=== PATIENT | male | born 1945 | race Caucasian/White ===

== ENCOUNTER → 2017-07-25 12:09 | Outpatient (CLI) | payer MEDICARE, SELFPAY ==
[2017-07-25 12:55] LABS: Absolute Lymphocyte Count 1.31 X10^3/ul (0.83-4.51); Basophil# 0.03 X10^3/uL; Basophil% 0.5 % (0-1); Eosinophil# 0.22 X10^3/uL; Eosinophils% 3.4 % (0-5); Hematocrit 40.2 % (40-54); Hemoglobin 12.9 g/dl (13.0-16.5); Lymphocyte # 1.31 X10^3/ul (4.0); Lymphocyte % 20.4 % (19-41); Mean Corp Hgb Conc 32.1 g/gl (32-36); Mean Corpuscular Hgb 27.9 pg (27.0-32.0); Mean Corpuscular Volume 86.8 fL (80-94); Mean Platelet Vol. 9.4 fl (6.2-12.0); Monocyte# 0.83 X10^3/uL; Monocyte% 12.9 % (0-10); Neutrophil # 4.03 X10^3/uL (2.7-7.7); Neutrophil % 62.6 % (47-70); Platelet Count 240 K/mm3 (150-450); RBC Distribution Width CV 13.3 % (11.6-14.6); RBC Distribution Width SD 42.5 fl (35.1-43.9); Red Blood Count 4.63 M/mm3 (4.6-6.2); White Blood Count 6.4 K/mm3 (4.4-11.0)
[2017-07-25 12:56] LABS: POSITIVE COUNT NO; POSITIVE DIFFERENTIAL NO; POSITIVE MORPHOLOGY NO
[2017-07-25 13:21] LABS: Anion Gap 6 (5-15); BUN 15 mg/dL (7-18); Calcium,Total 9.2 mg/dL (8.5-10.1); Chloride 102 mmol/L (98-107); Creatinine, Serum 1.36 mg/dL (0.70-1.30); EST Glomerular Filtration Rate 55 mL/min (>60); Est Glom Filt Rate - Afr Amer 66 mL/min (>60); Glucose 126 mg/dL (74-106); Potassium 4.8 mmol/L (3.5-5.1); Sodium Level 136 mmol/L (136-145)
== END ==
PROVIDERS: Family Provider Family Medicine; PCP Family Medicine; Visit Provider Internal Medicine Cardiovascular Disease
DX: I25.118 Atherosclerotic heart disease of native coronary artery with other forms of angina pectoris (principal); Z86.73 Personal history of transient ischemic attack (TIA), and cerebral infarction without residual deficits
CPT/HCPCS: 36415; 80048; 85025

== ENCOUNTER → 2022-04-04 | Outpatient (CLI) | payer OTHER, MEDICARE, SELFPAY ==
--- NOTE | 2022-04-04 07:52 | AAVD_ITS ---
Reason For Study: Heart Disease Aorta Measurements Aorta Doppler Measurements Proximal aorta measures1.90 x 1.91cm. in cross- Peak systolic flow velocities within the proximal sectional axis. aorta measure 82.1 cm/sec. Proximal aorta measures1.78cm. in longitudinal Peak systolic flow velocities within the mid aorta axis. measure 92.2 cm/sec. Mid aorta measures1.93 x 1.90cm. in cross- Peak systolic flow velocities within the distal sectional axis. aorta measure 75.9 cm/sec. Mid aorta measures1.90cm. in longitudinal axis. Distal aorta measures1.77 x 1.69cm. in cross- sectional axis. Distal aorta measures1.74cm. in longitudinal axis. Left Iliac Artery Left iliac artery measures 0.95 x 0.96 cm. in the cross-sectional axis. Left iliac artery measures 0.95 cm. in the longitudinal axis. Peak systolic velocity in the left iliac artery measures 122.7 cm/sec. Right Iliac Artery Right iliac artery measures 0.82 x 0.88 cm. in the cross-sectional axis. Right iliac artery measures 0.87 cm. in the longitudinal axis. Peak systolic velocity in the right iliac artery measures 121.2 cm/sec. Procedure Aorta IVC Iliac vasculature or bypass grafts [id number]. The exam was diagnostic. Exam performed in department. VL/Abd Aortic/IVC Duplex scan Interpretation Summary Maximal diameter of the abdominal aorta is proximally at 1.9 x 1.91 cm which is normal Normal aortic flow velocity noted Left common iliac artery measures 0.95 x 0.96 cm diameter which is normal right common neck measures 0.82 x 0.88 cm in diameter which is normal Ordering Physician: DONTE ARGUETA Performed By: Zachary Gorman RVT
== END | disposition home or self-care (01) ==
LOC: CVS 07:51
PROVIDERS: PCP Family Medicine
DX: I10 Essential (primary) hypertension (principal); I25.10 Atherosclerotic heart disease of native coronary artery without angina pectoris
CPT/HCPCS: 93978

== ENCOUNTER → 2022-04-05 | Outpatient (CLI) | payer OTHER, MEDICARE, SELFPAY | END | disposition home or self-care (01) | LOC: CR 07:50 | PROVIDERS: PCP Family Medicine | DX: Z00.00 Encounter for general adult medical examination without abnormal findings (principal) ==

== ENCOUNTER 2022-05-03 08:00 | Outpatient (RCR) | payer OTHER, MEDICARE, SELFPAY | END 2022-05-04 23:59 | LOC: CR 08:00 | PROVIDERS: PCP Family Medicine | DX: I25.10 Atherosclerotic heart disease of native coronary artery without angina pectoris (principal); I10 Essential (primary) hypertension | CPT/HCPCS: 92971; G0166 ==

== ENCOUNTER 2022-06-04 08:00 | Outpatient (RCR) | payer OTHER, MEDICARE, SELFPAY | END 2022-06-04 23:59 | LOC: CR 08:00 | PROVIDERS: PCP Family Medicine | DX: I25.10 Atherosclerotic heart disease of native coronary artery without angina pectoris (principal); I10 Essential (primary) hypertension | CPT/HCPCS: 92971; G0166 ==

== ENCOUNTER 2022-06-18 03:55 | Emergency (ER) | payer OTHER, SELFPAY ==
[2022-06-05 08:20] VITALS: BMI 24.9
[2022-06-18 03:56] VITALS: BP 180/99; PULSE 60; RESP 16; TEMP 36.2; O2SAT 100; BMI 26.2
--- NOTE | 2022-06-18 04:17 | EKG12_ITS ---
Test Reason : CP Blood Pressure : / mmHG Vent. Rate : 058 BPM Atrial Rate : 058 BPM P-R Int : 210 ms QRS Dur : 088 ms QT Int : 418 ms P-R-T Axes : 024 -09 062 degrees QTc Int : 410 ms Sinus bradycardia with 1st degree A-V block Low voltage QRS Poor R wave progression Confirmed by VINCENZO LEAVITT, JAEL ([id number]), loan expeditor MAGDALENE ISAAC ([id number]) on 06/19/2022 1:42:30 PM Referred By: DONALDO Confirmed By:JAEL LOYA MD
--- NOTE | 2022-06-18 04:17 | RAD_ITS ---
INDICATION: chest pain EXAMINATION/TECHNIQUE: X-RAY - XR Chest 1 View COMPARISON: None. FINDINGS: LINES/DEVICES: None. LUNGS: No consolidation, edema or effusion. No pneumothorax. MEDIASTINUM AND CARDIOVASCULAR STRUCTURES: Cardiac silhouette not enlarged. Central airways and mediastinal contour are unremarkable. BONES AND SOFT TISSUES: Unremarkable. RAD/Chest 1 View (Portable) IMPRESSION: No radiographic evidence of acute cardiopulmonary disease. Electronically Signed: John Salazar MD at 4:51 EST ,
[2022-06-18 04:23] LABS: Absolute Lymphocyte Count 1.76 X10^3/uL (0.83-4.51); Basophil# 0.04 X10^3/uL; Basophil% 0.7 % (0-1); Eosinophil# 0.19 X10^3/uL; Eosinophils% 3.2 % (0-5); Hematocrit 40.1 % (40-54); Hemoglobin 12.9 g/dL (13.0-16.5); Lymphocyte # 1.76 X10^3/ul (0.83-4.51); Mean Corp Hgb Conc 32.2 g/dL (32-36); Mean Corpuscular Hgb 27.5 pg (27.0-32.0); Mean Corpuscular Volume 85.5 fL (80-94); Monocyte# 0.86 X10^3/uL; Monocyte% 14.7 % (0-10); NRBC Flagged by Analyzer 0 % (0-5); Neutrophil # 2.99 X10^3/uL (2.7-7.7); Neutrophil % 51.1 % (47-70); Platelet Count 277 K/mm3 (150-450); RBC Distribution Width CV 14.6 % (11.6-14.6); RBC Distribution Width SD 45.7 fl (35.1-43.9); Red Blood Count 4.69 M/mm3 (4.6-6.2); White Blood Count 5.9 K/mm3 (4.4-11.0)
[2022-06-18 04:45] LABS: Anion Gap 7 (5-15); BUN 16 mg/dL (7-18); BUN/Creat Ratio 12.8 RATIO (10-20); Chloride 102 mmol/L (98-107); Creatinine, Serum 1.25 mg/dL (0.70-1.30); EST Glomerular Filtration Rate 60 mL/min (>60); Est Glom Filt Rate - Afr Amer 72 mL/min (>60); Estimated Creatinine Clearance 55.18 ml/min; Glucose 116 mg/dL (74-106); Magnesium 2.3 mg/dL (1.6-2.6); Potassium 4.3 mmol/L (3.5-5.1); Sodium Level 133 mmol/L (136-145); Troponin-I HS (w/2H Reflex) 8 pg/mL (3.0-78.0)
[2022-06-18 04:55] VITALS: BP 150/86; PULSE 58; RESP 15; O2SAT 97
[2022-06-18 05:00] VITALS: BP 160/87; PULSE 56; RESP 16; O2SAT 99
--- NOTE | 2022-06-18 05:13 | ED.VIS.CHEST ---
HPI History of Present Illness Chief Complaint: Chest Pain Informant: patient Narrative Narrative: Patient is a 76-year-old male with history of coronary artery disease, hypertension, hyperlipidemia and prior stents (last it was a little over 1 year ago) presenting with chest pain. Patient states he developed chest pressure in the center of his chest has been constant since yesterday. It intermittently radiates to his left arm and jaw. Became more severe last night and around 2 AM he woke up with cold sweats. He did take nitroglycerin at around 3 AM with some improvement of pain. EMS was called and they did give him aspirin and further nitroglycerin in route. Patient notes that he did just start EECP therapy through [facility]. His care is typically through the [facility] system. He notes with his increased activity he has had some increased chest discomfort especially over the last week. He is no longer on Brilinta but is still on clopidogrel. He states he was read off of his statin due to elevated liver enzymes. Patient denies any shortness of breath or difficulty breathing. He notes his chest discomfort is worse with exertion. He states his last cardiac catheterization was probably over a year ago since he was when his stent was. Prior Similar Symptoms: With Prior Angina [facility] Medical History (Updated 06/18/22 @ 07:[address] Lizzie Antunez, DO) Abnormal EKG Atherosclerotic heart disease of [place] coronary artery with other forms of angina pectoris BPH (benign prostatic hyperplasia) Depression Erectile dysfunction ETOH abuse GERD (gastroesophageal reflux disease) History of TIA (transient ischemic attack) Hyperlipidemia Hypertension Hyperthyroidism Nicotine dependence in remission Home Medications aspirin 81 mg tablet,delayed release (Adult Aspirin Regimen) 81 mg PO .daily 07/23/17 [History Last Taken Unknown] finasteride 5 mg tablet 5 mg PO QDAY 07/23/17 [History Last Taken Unknown] isosorbide mononitrate 60 mg tablet,extended release 24 hr 60 mg PO QAM 07/23/17 [History Last Taken Unknown] levothyroxine 25 mcg tablet 25 mcg PO QDAY 07/23/17 [History Last Taken Unknown] nitroglycerin 0.4 mg sublingual tablet 0.4 mg sublingual Q5-15M PRN Chest Pain 07/23/17 [History Last Taken Unknown] tamsulosin 0.4 mg capsule (Flomax) 0.4 mg PO QDAY 07/23/17 [History Last Taken Unknown] losartan 50 mg tablet 25 mg PO QDAY 07/25/17 [History Last Taken Unknown] omeprazole 20 mg capsule,delayed release 20 mg PO BID 07/25/17 [History Last Taken Unknown] albuterol 90 mcg/actuation aerosol inhaler 90 mcg inhalation PRN PRN SOB 06/18/22 [History Last Taken Unknown] clopidogrel 75 mg tablet 75 mg PO DAILY 06/18/22 [History Last Taken Unknown] isosorbide mononitrate 120 mg tablet,extended release 24 hr 120 mg PO DAILY #30 tabs 06/18/22 [Rx Last Taken Unknown] metoprolol succinate 100 mg tablet,extended release 24 hr 100 mg PO DAILY 06/18/22 [History Last Taken Unknown] tiotropium bromide 2.5 mcg/actuation mist for inhalation 2 puff inhalation DAILY 06/18/22 [History Last Taken Unknown] Allergy/AdvReac Type Severity Reaction Status Date / Time Sulfa (Sulfonamide Allergy Unknown unknown Verified 06/18/22 04:02 Antibiotics) ranolazine [From Ranexa] AdvReac syncope, Verified 06/18/22 04:02 dizziness, nausea Family History Mother Cancer Bladder cancer Surgical History (Updated 06/18/22 @ 07:[address] Lizzie Antunez DO) History of coronary artery stent placement Social History Smoking Status: Former smoker alcohol intake: former caffeine: Yes Type: coffee Number of servings: 5 ROS ROS ED Constitutional Constitutional ED: Reports sweats; Denies chills or fever(s) Eyes Eyes: Denies change in vision ENT ENT ED: Denies rhinorrhea Cardiovascular Cardiovascular: Reports as per HPI and chest pain Respiratory/Chest Respiratory/Chest: Reports dyspnea on exertion; Denies cough or dyspnea Gastrointestinal Gastrointestinal: Reports nausea; Denies abdominal pain or vomiting Musculoskeletal Musculoskeletal: Denies arthralgias or myalgias Integumentary Denies rash Neurologic Neurologic: Denies headache(s) Hematologic/Lymphatic Hematologic/Lymphatic: Denies easy bleeding or easy bruising EXAM Physical Exam Const Vital Signs: 06/18/22 03:56 06/18/22 03:56 06/18/22 04:17 Temperature 97.2 F L Temperature Source Temporal Pulse Rate 60 Respiratory Rate 16 Respiratory Effort Normal Blood Pressure 180/99 H Blood Pressure Mean 126 Pulse Ox 100 Oxygen Delivery Method Room Air Room Air 06/18/22 04:55 06/18/22 05:00 06/18/22 06:00 Temperature Temperature Source Pulse Rate 58 L 56 L 55 L Respiratory Rate 15 16 13 Respiratory Effort Blood Pressure 150/86 H 160/87 H 151/84 H Blood Pressure Mean 107 111 106 Pulse Ox 97 99 97 Oxygen Delivery Method Room Air Room Air Room Air Positive well nourished and well developed General Appearance ED: well developed and NAD HEENT Reports moist mucous membranes normocephalic and atraumatic Neck supple and no JVD Chest Wall inspection of chest normal and palpation of chest normal Resp normal respiratory effort and clear to auscultation bilaterally Cardio regular rate, regular rhythm and no murmurs GI normal to inspection, nondistended, normoactive bowel sounds and soft to palpation Extremity normal to inspection General Extremety ED: Negative for edema or pulses abnormal General Extremity: Negative for edema or pulses abnormal Neuro oriented x3 Neuro Narrative: No focal deficits appreciated Sensorium / Orientation: awake Motor Exam: Negative for general weakness Psych mental status grossly normal Skin no rashes or lesions noted Heart Score History: Highly Suspicious ECG: Normal Age: >/= 65 years Risk Factors: >/= 3 Risk Factors or History of CAD Troponin: </= Normal Limit Score: 6 MDM MDM MDM Narrative Medical decision making narrative: Scanned documents reviewed from the [facility]. Patient had a stress test on November 26, 2021 which was negative for changes consistent with myocardial ischemia. Patient did have angina that were improved with rest with this. Cardiac catheterization on 01/23/2022 from the [facility] reviewed which showed no acute occlusion, patent proximal and distal stent and the LAD, patent stent in OM 2 and moderate diffuse disease throughout, medical management recommended. At that time it was thought that patient might benefit from EECP therapy. Differential for patient includes angina, ACS, pneumonia and pneumothorax. EKG does not show acute ischemic changes. 1 view chest x-ray interpreted by myself as well as radiology does not show any acute process. Initial high since he troponin is 8. Will repeat patient's troponin and then discussed the case with cardiology. Patient had a normal cardiac catheterization less than 6 months ago however his story is concerning for unstable angina. He continues to be asymptomatic in the ER this is confounded by the fact that he has a significant history of angina with multiple normal cardiac catheterizations. Case discussed extensively with Dr. Turcios, cardiology on-call. I went [facility] and recent cardiac catheterization reports with him. We also discussed the patient's current medical management. He did suggest increasing the patient's Imdur to 120 mg daily. States that the patient is stable at this time likely we could try medication management as he previously has been managed with medication management and it seems less likely that ACS is his diagnosis given his stable EKG and normal high-sensitivity troponins. We also did discuss transferring the patient back to the [facility]. At this time patient feels like he be comfortable just calling his discharge planner this morning and following up outpatient. He is agreeable with this medication change. He is given a new prescription for Imdur 120 mg in case he runs out of his 60 mg before he can follow-up with his medical team. Patient is counseled that if he has any further progression or recurrence of his angina that is outside of his normal angina he should either return immediately to our ER or to the [facility] ER. Patient feels comfortable doing this and shared decision making is utilized. Lab Data Attestation: I reviewed the patient's lab results. Labs: Laboratory Results - last 24 hr 06/18/22 06/18/22 06/18/22 04:05 04:05 06:26 WBC 5.9 RBC 4.69 Hgb 12.9 L Hct 40.1 MCV 85.5 MCH 27.5 MCHC 32.2 RDW Std Deviation 45.7 H RDW Coeff of Ramses 14.6 Plt Count 277 MPV 9.0 Immature Gran % (Auto) 0.300 Neut % (Auto) 51.1 Lymph % (Auto) 30.0 Bremer % (Auto) 14.7 H Eos % (Auto) 3.2 Baso % (Auto) 0.7 Absolute Neuts (auto) 3.0 Absolute Lymphs (auto) 1.76 Nucleated RBC % 0 Sodium 133 L Potassium 4.3 Chloride 102 Carbon Dioxide 24.0 Anion Gap 7 BUN 16 Creatinine 1.25 Estim Creat Clear Calc 55.18 Est GFR (MDRD) Af Amer 72 Est GFR (MDRD) Non-Af 60 BUN/Creatinine Ratio 12.8 Glucose 116 H Calcium 9.0 Magnesium 2.3 Troponin I High Sens 8 7 Radiography Chest X-Ray - ED: 1 View, Read by ED Physician, Read by Radiologist and No Acute Disease Diagnostic Testing: Clinical Impression(s) from Imaging Studies Chest X-Ray 06/18/22 04:17 IMPRESSION: No radiographic evidence of acute cardiopulmonary disease. Electronically Signed: John Salazar MD at 4:51 EST , Rhythm Strip Rhythm Strip: Sinus bradycardia Rate: 58 Ectopy: None EKG Initial EKG: Attestation: I personally reviewed and interpreted this EKG as follows: Interpretation: Sinus Bradycardia Comments: Sinus bradycardia with first-degree AV block at a rate of 58 bpm NH interval 210 Normal axis Normal QRS and QTc Normal ST segments Discharge Plan Triage Chief Complaint: Chest Pain ED Provider: Lizzie Antunez Dx/Rx/DC Orders Clinical Impression: Angina pectoris, unspecified, History of coronary artery stent placement Instructions: ED Angina, Stable Prescriptions: New isosorbide mononitrate 120 mg tablet extended release 24 hr 120 mg PO DAILY Qty: 30 0RF No Action isosorbide mononitrate 60 mg tablet extended release 24 hr 60 mg PO QAM finasteride 5 mg tablet 5 mg PO QDAY nitroglycerin 0.4 mg tablet, sublingual 0.4 mg SUBLINGUAL Q5-15M PRN (Reason: Chest Pain) levothyroxine 25 mcg tablet 25 mcg PO QDAY aspirin [Adult Aspirin Regimen] 81 mg tablet,delayed release (DR/EC) 81 mg PO .daily tamsulosin [Flomax] 0.4 mg capsule,extended release 24hr 0.4 mg PO QDAY omeprazole 20 mg capsule,delayed release(DR/EC) 20 mg PO BID losartan 50 mg tablet 25 mg PO QDAY metoprolol succinate 100 mg Tablet Extended Release 24 Hr 100 mg PO DAILY clopidogrel 75 mg Tablet 75 mg PO DAILY albuterol 90 mcg/actuation Aerosol 90 mcg INHALATION PRN PRN (Reason: SOB) tiotropium bromide 2.5 mcg/actuation Mist 2 puff INHALATION DAILY Primary Care Provider: Jesus Beckett Referrals: Jesus Beckett MD [Primary Care Provider] - Activity Restrictions/Additional Instructions: Please follow-up with your discharge planner through the [facility]. At this time we will try to optimize medical management by increasing your isosorbide mononitrate to 120 milligrams daily. You can take 2 of your 60 mg tablets every morning. You been given a prescription for the 120 mg dose in case you run out before you can see your discharge planner. If your anginal symptoms worsen or progress please either return to our ER or to the [facility] ER. Disposition Disposition: Home, Self Care
[2022-06-18 06:00] VITALS: BP 151/84; PULSE 55; RESP 13; O2SAT 97
[2022-06-18 06:21] LABS: Reflex Troponin-HS? (from REC) Y
[2022-06-18 06:53] LABS: Troponin-I HS 7 pg/mL (3.0-78.0)
[2022-06-18 07:47] VITALS: BP 155/89; PULSE 61; RESP 16; O2SAT 97
== END 2022-06-18 07:48 | disposition home or self-care (01) ==
PROVIDERS: Emergency Provider Emergency Medicine; PCP Family Medicine; Visit Provider Emergency Medicine
DX: I25.119 Atherosclerotic heart disease of native coronary artery with unspecified angina pectoris (principal); I10 Essential (primary) hypertension; R74.8 Abnormal levels of other serum enzymes; Z87.891 Personal history of nicotine dependence; Z95.5 Presence of coronary angioplasty implant and graft; E78.5 Hyperlipidemia, unspecified; Z86.73 Personal history of transient ischemic attack (TIA), and cerebral infarction without residual deficits; K21.9 Gastro-esophageal reflux disease without esophagitis
CPT/HCPCS: 71045; 80048; 83735; 84484; 85025; 93005; 99284; A4216

== ENCOUNTER 2022-07-01 09:30 | Outpatient (RCR) | payer OTHER, MEDICARE, SELFPAY ==
--- NOTE | 2022-06-05 08:04 | PCM.CR.HP2 ---
CR - History & Physical - General Arrival date:: 06/05/22 Arrival time:: 08:00 Date of Referral:: 05/30/22 Date of CR Evaluation:: 06/05/22 Referring Physician: SHIRA GEORGE Primary Diagnosis: Stable angins - History of Present Cardiac Event Onset Date: Enter Onset Date of cardiac illnesses in Comment field below Current stable Angina Pectoris:: Yes Type of Symptoms:: chest pain, unspecified w/ chest pressure. Shortness of breath, fatigue. Patient is also being treated with EECP therapy. - Sleep Disorder Evaluation Hx of Sleep Apnea: No Do you snore loudly (louder than talking or can be heard through closed doors)?: No Do you often feel tired/ fatigued/ sleepy during daytime?: Yes Has anyone observed you stop breathing during sleep?: No History of Hypertension (for STOP score): Yes STOP Results: Positive - Medications Home Medications: Ambulatory Orders Medication Instructions Recorded aspirin 81 mg tablet,delayed 81 mg PO .daily 07/23/17 release (Adult Aspirin Regimen) atorvastatin 80 mg tablet 80 mg PO QDAY 07/23/17 finasteride 5 mg tablet 5 mg PO QDAY 07/23/17 isosorbide mononitrate 60 mg 60 mg PO QAM 07/23/17 tablet,extended release 24 hr levothyroxine 25 mcg tablet 25 mcg PO QDAY 07/23/17 nitroglycerin 0.4 mg sublingual 0.4 mg sublingual Q5-15M PRN 07/23/17 tablet tamsulosin 0.4 mg capsule (Flomax) 0.4 mg PO QDAY 07/23/17 ticagrelor 90 mg tablet (Brilinta) 90 mg PO BID 07/23/17 losartan 50 mg tablet 25 mg PO QDAY 07/25/17 metoprolol tartrate 25 mg tablet 50 mg PO BID 07/25/17 omeprazole 20 mg capsule,delayed 20 mg PO BID 07/25/17 release - Allergies Allergies/Adverse Reactions: Allergies Sulfa (Sulfonamide Antibiotics) Allergy (Unknown, Unverified 07/25/17 10:35) unknown ranolazine [From Ranexa] Adverse Reaction (Verified 07/25/17 10:39) syncope, dizziness, nausea Advanced Directives - Advanced Directives 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: No Living Will: No Advance Directives Information Provided: Yes Advance Directives on File: No DNR Order?:: No - MOLST See MOLST form: No Past Medical History - Covid-19 Screening Fever: No Unexplained muscle aches: No Current respiratory symptoms: No Upper respiratory infections symptoms: No Gastro-intestinal symptoms: No Otk-Hdja-Egpphc symptoms: No Has tested positive for COVID-19 in last 30 days: No Had contact w/person w/symptoms or Covid-19 (+) last 14 days: No Has High Risk Exposures ID'd by Health dept/Inf Control team: No 65 years or older:: Yes Lives in Assisted Living facility:: No Has a chronic lung disease or moderate to severe asthma:: No Has a serious heart condition:: Yes Immunocompromised:: No Severely obese (Body Mass Index of 40 or higher):: No Diabetic:: No Has chronic kidney disease undergoing dialysis:: No - Past Medical Illness Medical History: Past Medical History (Last Reviewed 07/25/17 @ 17:[address] 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 Karlo Oconnor MD) History of coronary artery stent placement Z95.5 PCI-LAD Taxus X 2 04/26/10; PCI-LAD 2.25 x 20 mm Synergy and RCA 2.5 x 24 mm 07/16/16; PCI- ? Xience Alpine 3.5 x 8 mm ?? - Family History Summary Family History: Family History (Last Reviewed 07/25/17 @ 17:[address] 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 Left click = Reports ([place]) Review of Present Symptoms: Reports: Shortness of Breath at Rest, Shortness of Breath with Exertion, Angina, Dizziness/Lightheadedness, Fatigue, Heart Arrhythmia/Irregularities - short runs of PAT, occasional Premature atrial contractions and rare premature ventricular contractions - Pain Is Patient Pain Free?: Yes Pain Location: none Pain Level: 0/10 Risk Factor Assessment - Vital Signs Temperature: 98.3 F Respiratory Rate: 14 Pulse Ox: 99 Blood Pressure: 132/84 - Pulse Pulse Rate: 58 Pulse Rhythm: Regular - Hypertension Blood Pressure Sitting - Left Arm: 132/84 - Obesity Height: 6 ft Weight:: 184 lb Weight in Pounds: 184.0 lbs Weight Source: Standing Scale Body Mass Index (BMI): 24.9 Nutritional Referral for Obesity: No - Physical Inactivity Physical Inactivity: None - Family History Family History: Family History (Last Reviewed 07/25/17 @ 17:[address] Karlo Oconnor MD) Mother Cancer Motivation - Motivation to Participate On a scale of 1 to 10, how prepared are you to commit to attending program?: 10 What do you see as barriers to successfully being able to complete the program?: angina pain What do you see as the benefits of succesfully completing the program? In other words, what do you hope to get out of participating in the program?: getting some energy back, relieve the chest pain Are there issues you are dealing with that will interfere with completing the program?: occasional chest pressure/chest pain Do you have a spouse or signficant other, family or friends who will help support you to complete the program?: yes
[2022-06-05 08:10] VITALS: BP 132/84; PULSE 58; RESP 14; TEMP 36.8; O2SAT 99; BMI 24.9
--- NOTE | 2022-06-05 08:11 | PCM.CR.ITP ---
Diagnosis - General Information Admitting Diagnosis: Stable angina pectoris Secondary Diagnosis: Hypertension, hyperlipidemia Personal Learning Style:: Audio/Visual, Written Barriers to Learning: Hearing Impairment, Vision Impairment Stage of change r/t lifestyle modifications:: Action Gave educational material for:: Treating Heart Disease, Emotions & Heart Disease, Stress Management & Relaxation, Sleep Disorders & Heart Disease, How The Heart Works, What it means to have Heart Disease, How Coronary Artery Disease is Diagnosed, Heart Procedures, What Heart Medications Do, Risk Factors & Modifications, Living an Active Life, Nutrition - Education/Goals Individual Counseling: Initial Assessment: Abnormal Cholesterol Levels, High Blood Pressure Cardiac Rehabilitation Goals: 1. Maintain the individual as the primary focus of care. 2. To improve the patient's quality of life. 3. Identification of cardiac risk factors and provide cardiac risk factor management. 4. Enhance the psychosocial status of the patient. 5. Reconditioning enough to allow the patient to resume customary activities. 6. Control symptoms of cardiac disease Personal Goals: Initial Assessment: Improve energy level, Get back to work, or to resume activities faster, Improve muscle strength and endurance Scale for measuring improvement of personal goals: Enter appropriate number in Comments. 2 = Unchanged. 3 = Slightly Better. 4 = Moderate Improvement. 5 = Met my Goal - Diagnosis & Disease Process Outcomes/Goals: Pt IDs own risk factors & lifestyle modifications by Session 10, Verbalizes symptoms of angina & response by session 3., Pt independently manages Plan/Interventions: Assist Pt to ID & engage in lifestyle modification to reduce CVD risk, Instruct on individual risk factors, Review symptoms of angina & emergency actions, Review secondary diagnosis & identify educational needs. - Safety Referral to Physical Therapy: No Referral to [facility] Case Management: No Fall Risk Assessed:: Yes Assistive Devices:: None Exercise - Initial Assessment - Visit Date of Eval: 06/05/22 Session #:: 0 - pre-cardiac rehab eveluation Mets: Pre-: >7 METS for 30 minutes by discharge - Physician Prescribed Exercise Modalities: Treadmill, Airdyne, NuStep Frequency: 3x/week for 12 weeks [36 sessions] Intensity: 60-80% of age predicted maximum heart rate reserve Duration: 30 - 45 minutes Current METSs:: 3.0 Target Heart Rate:: 94-123 Resting Blood Pressure: 132/84 - 06/05/2022 EKG Type: NSR w/occasional PACs PVCs Current Physical Activity or Exercising minutes: > 1 hour - Outcomes & Goals Goals:: Verbalizes understanding of THR, RPE & goal METS by session 6, Documents in home exercise log/reports 30 min aerobic 5 day/wk by DC, Demonstrates accurate pulse taking by DC - Intervention & Plan Exercise Program Goals: Instruct on personal THR & RPE, Instruct on MET level & personal MET goal, Show patient to take own pulse /validate performance until accurate, Instruct on home exercise - Physical Activity Home Exercise Physical Activity - Home Exercise: Safe Exercise, Warm-up, Self-monitoring, Cool-Down, Home Exercise > 30 min Daily, Sitting Time <3 hours/daily - Outcomes & Goals Outcomes/Goals: Demonstrates correct Warm-up/exercise Cool-Down (S3) if = 2.5 METs, Verbalizes symptoms of exercise intolerance by Session 3 (S3), Demonstrate safe equipment use (S3) & follows exercise prescrition (6) - Intervention & Plan Plan/Intervention: Instruct warm-up & cool-down if exercising at > 2 METs, Instruct on symptoms of exercise intolerance & actions to take, Instruct & monitor on saf, Assess intial functional capacity & safety risk Nutrition - Initial Assessment - Program Goals Nutrition Program Goals: LDL <100 optimal. 100 - 129 Near optimal. 130 - 159 Borderline High. 160 - 189 High. Total Cholesterol <200 desirable. 200 - 239 Borderline High. >/= 240 High. HDL < 40 Low >/=60 High. Triglycerides <150 desirable. <199 optimal. VlDL 5 - 40. HgbA1C <7%. BMI <25 Patient has diagnosis of Hyperlipidemia (ICD E78)?: Yes - Visit Date of Assessment:: 06/05/22 Session #:: 0 - pre-cardiac rehab - Cholesterol/Lipids (Other Core Measures) Determine presence & major risk factors that modify LDL goal: Hypertension or hypertensive medication, Family history of premature CHD in Male < 55 years: female <65 yearsFa, Age men > 45 years; women >/= 55 years Outcomes/Goals: Pt IDs own risk factors & lifestyle modifications by Session 10, Verbalizes symptoms of angina & response by session 3., Pt independently manages Intervention/Plan: Instruct on personal lipid levels & lipid goals/NCEP guidelines, Instruct on cholesterol Referral to dietitian:: No - Diabetes (Other Core Measures) Diabetes Type: Not Applicable - Weight Mgt (Other Care) Not Applicable: No Height: 6 ft Weight:: 184 lb BMI: 24.9 Diagnosis Overweight/Obesity BMI> 30% ICD-10 E66: No Diagnosis High BMI/Morbid Obesity BMI> 35% ICD-10 Z68: No Outcomes/Goals: Pt sets, maintains & shows weight loss goal & trend during rehab Intervention/Plan: Instruct on ideal BMI & set weight loss goal w/patient - Healthy Eating Habits Will attend diet classes:: Yes Outcomes/Goals:: Consume diet rich in vegs,fruits,whole grain/high fiber,fish,lean meat, Limit sat/trans fats,cholesterol & added salts & sugars Intervention/Plan:: Assess current eating habits - Education Gave educational materials for:: Healthy eating Nutrition - 30-Day Assessment Nutrition - 60-Day Assessment Nutrition - 90-Day Assessment Nutrition - Final Assessment Core - Initial Assessment - Visit Date of Eval: 06/05/22 Session #:: 0 - pre-cardiac rehab - Medication Compliance Preventative Medication(s):: Aspirin, Clopidogrel/P2Y12 inhibit, Statin/lipid, Beta sergo H/O mental health issues: depression, anxiety, or addiction?: No Doesn?t believe in the benefits of treatment?: No Believes medications are unnecessary or harmful?: No Has a concern about medication side effects?: No Expresses concern over the cost of medications?: No Outcomes/Goals: Verbalizes medications,desired effect & common side effects @ DC, Pt self-reports following medication regimen, Keeps card in wallet w/medications listed by DC Interventions/plans: Instruct on medication effects & side effects, Review medication list w/patient every two weeks, Instruct importance of taking meds as ordered & assist problem solving - Tobacco Use Tobacco Use: Non-smoker - Hypertension Hypertension Diagnosis:: Hypertension ICD-10 I10 Resting Blood Pressure:: 132/84 [place] [employer] Hypertension Guidelines: [place] [employer] Hypertension Guidelines. Normal BP Less than 120/80. Elevated BP 120/80. Hypertension Stage 1: BP 130-139/80-89. Hypertesnion Stage 2: BP 140 or higher/90 or higher. Hypertension Crisis: BP higher than 180/120 Outcomes/Goals: Able to verbalize/achieve optimal blood pressure <130/80, Incorporates diet changes & exercise for blood pressure control by DC Interventions/plan: Instruct on optimal blood pressure, hypertension & medications, Instruct on effects of sodium, alcohol, stress, exercise &hypertension - Tobacco Cessation Referral Smoking Cessation Referral:: No Individual Education/Counseling:: No Education Schedule Given:: Yes Core - 30-Day Assessment Core - 60-Day Assessment Core - 90 Day Assessment Core - Final Assessment Psychosocial - Initial Assess - VIsit Date of Arnaldo: 06/05/22 Session #:: 0 - pre-cardiac rehab evaluation Not Applicable: No History of previous Mental disease:: Yes History of Emotional Disorders: Depression Self-reported stressors: Recent Illness - Psychosocial Test Tool Used:: [place] QOL Cardiac, PHQ-9 Questionnaire phq-9 Severity: Severity. 1-4 Minimal Depression. 5-9 Mild Depression. 10-14 Moderate Depression. 15-19 Moderately Sever Depression. 20-27 Severe Depression. Rule: See PHQ-9 Score: 3 - Referral to Behavioral Health PS - Interventions: Yes Attend Stress Management Classes, No Referral to Behavioral Health if PHQ-9 score >9:, No Referral to [facility], No Referral to Physician if PHQ-9 if score is 5-9: - Outcomes/Goals: See list Psychosocial Outcomes/Goals:: ID's personal stressors & 2 strategies to manage stress by discharge - Intervention/Plan: See List Interventions/Plan:: Assess stressors,coping strategies & signs of derpression on admission, Instruct/assist pt to develop coping & personal stress Mgt strategies, Instruct patient to recognize signs & symptoms of depression, Instruct patient to recog Psychosocial - 30-Day Assess Psychosocial - 60-Day Assess Psychosocial - 90-Day Assess Psychosocial - Final Assessmen Patient Health Questionnaire Initial Assessment 1. Little interest or pleasure in doing things: Not at all 2. Feeling down, depressed, or hopeless: Not at all 3. Trouble falling or staying asleep, or sleeping too much: Not at all 4. Feeling tired or having little energy: Nearly every day 5. Poor appetite or overeating: Not at all 6. Feeling bad about yourself -- or that you are a failure or have let yourself or your family down: Not at all 7. Trouble concentrating on things, such as reading the newspaper or watching television: Not at all 8. Moving or speaking so slowly that other people could have noticed. Or the opposite - being so fidgety or restless that you have been moving around a lot more than usual: Not at all 9. Thoughts that you would be better off , or of hurting yourself in some way: Not at all How difficult have these problems made it for you to do your work, take care of things at home, or get along with other people?: Not difficult at all Total Score: 3 AP-Q SV Test - Statements CAD is a disease of the arteries in the heart: False Examples of risk factors for heart disease: True Angina is chest pain or discomfort: True The benefits of resistance training include: True Eating more meat and dairy products: False Anti-platelet medications such as aspirin are important: True The only effective way to manage stress: False An exercise warm-up slowly increases heart rate: False Prepared, processed foods usually have high sodium: True Depression is common after a heart attack: True The statin medications lower cholesterol: True To control blood pressure, lower the amount of sodium: True If someone gets chest discomfort during walking: False Transfats are partially hydrogenated vegetable oils: True Sleep apnea that is not treated increases the risk: False To control cholesterol, one should become a vegetarian: False Someone knows if he/she is exercising at the right level: True Diabetes cannot be prevented with exercise & health eating: True Stress is a large risk for heart attack: True A diet that can help lower blood pressure is rich in: True - Total Score Total Correct Responses: 18 Self-Efficacy Initial Assessment We would like to know how confident you are in doing certain activities. Please select your confidence level for:: Select your confidence level for the following using the scale 1-10 where 1 is not at all confident and 10 is totally confident. Your score is the average of all 6 responses. Fatigue: How confident are you that you can keep the fatigue caused by your disease from interfering with the things you want to do? Select Number: 8 Physical Discomfort or Pain: How confident are you that you can keep the physical discomfort or pain of your disease from interfering with the things you want to do? Select Number: 8 Emotional Distress: How confident are you that you can keep the emotional distress caused by your disease from interfering with the things you want to do? Select Number: 8 Other Symptoms or Health Problems: How confident are you that you can keep other symptoms or health problems from interfering with the things you want to do? Select Number: 8 Different Tasks and Activities: How confident are you that you can do the different tasks and activities needed to manage your health condition so as to reduce your need to see a doctor? Select Number: 8 Medication: How confident are you that you can do things other than just taking medication to reduce how much your illness affects your everyday life? Select Number: 10 Total Score:: 8 Nutrition Survey - Nutrition Survey Initial Have you lost >10 lbs over the past 2 months without trying?: No Are you following a special diet at home for diabetes, low fat, or low salt?: Yes Are you interested in meeting with a dietitian for help understanding your diet?: No Do you eat less than 3 meals a day?: No Do you eat fatty meats (beebe, sausage, ribs, etc), fried foods, desserts, large amounts of salad dressings, margarine, butter, or cheese most days?: No Do you have food allergies? [Enter types in comment field]: No Do you eat in restaurants more than 3 times a week?: No Do you season food with salt, seasoning salt, or garlic salt?: No Do you used canned, boxed, frozen meals, or soups, seasoning packets?: No Total Score:: 1
[2022-06-05 08:20] VITALS: BP 132/84; BMI 24.9
== END 2022-07-02 23:59 ==
LOC: CR 09:30
PROVIDERS: PCP Family Medicine
DX: I20.8 Other forms of angina pectoris (principal)
CPT/HCPCS: 93798

== ENCOUNTER 2022-07-02 08:00 | Outpatient (RCR) | payer OTHER, MEDICARE, SELFPAY | END 2022-07-02 23:59 | LOC: CR 08:00 | PROVIDERS: PCP Family Medicine | DX: I25.9 Chronic ischemic heart disease, unspecified (principal); I25.118 Atherosclerotic heart disease of native coronary artery with other forms of angina pectoris; I10 Essential (primary) hypertension | CPT/HCPCS: 92971; G0166 ==

== ENCOUNTER 2022-07-10 08:00 | Outpatient (RCR) | payer OTHER, SELFPAY ==
[2022-06-05 08:20] VITALS: BMI 24.9
== END 2022-08-02 23:59 ==
LOC: CR 08:00
PROVIDERS: PCP Family Medicine
DX: I25.10 Atherosclerotic heart disease of native coronary artery without angina pectoris (principal); I25.9 Chronic ischemic heart disease, unspecified; I10 Essential (primary) hypertension
CPT/HCPCS: 92971; G0166

== ENCOUNTER 2022-08-02 09:30 | Outpatient (RCR) | payer OTHER, SELFPAY ==
[2022-06-05 08:20] VITALS: BMI 24.9
[2022-07-03 00:09] VITALS: BP 132/84; PULSE 58; RESP 14; TEMP 36.8; O2SAT 99; BMI 24.9
== END 2022-08-02 23:59 ==
LOC: CR 09:30
PROVIDERS: PCP Family Medicine
DX: I20.8 Other forms of angina pectoris (principal)
CPT/HCPCS: 93798

== ENCOUNTER 2022-08-30 09:30 | Outpatient (RCR) | payer OTHER, SELFPAY ==
[2022-06-05 08:20] VITALS: BMI 24.9
[2022-08-03 00:56] VITALS: BP 132/84; PULSE 58; RESP 14; TEMP 36.8; O2SAT 99; BMI 24.9
== END 2022-09-01 23:59 ==
LOC: CR 09:30
PROVIDERS: PCP Family Medicine
DX: I25.10 Atherosclerotic heart disease of native coronary artery without angina pectoris (principal); I25.9 Chronic ischemic heart disease, unspecified; I10 Essential (primary) hypertension
CPT/HCPCS: 93798

== ENCOUNTER 2022-09-06 09:30 | Outpatient (RCR) | payer OTHER, SELFPAY ==
[2022-06-05 08:20] VITALS: BMI 24.9
[2022-09-02 00:20] VITALS: BP 132/84; PULSE 58; RESP 14; TEMP 36.8; O2SAT 99; BMI 24.9
--- NOTE | 2022-09-02 09:00 | PCM.CR.ITP ---
Diagnosis Exercise - 90-day Assessment - Visit Date of Eval: 09/02/22 Session #:: 34 - Physician Prescribed Exercise Modalities: Treadmill, NuStep, Lateral [place] Frequency: 3x/week for 12 weeks [36 sessions] Intensity: 60-80% of age predicted maximum heart rate reserve Current METSs:: 6.1 Target Heart Rate:: 108-122 Current RPE:: 10-13 Maximum Excercise HR:: 85 Resting Blood Pressure: 126/68 Maximum Exercise Blood Pressure: 126/68 EKG Type: SB to NSR w/borderline 1st degree AVB w/rare PAC - Outcomes & Goals Goals:: Verbalizes understanding of THR, RPE & goal METS by session 6, Documents in home exercise log/reports 30 min aerobic 5 day/wk by DC, Demonstrates accurate pulse taking by DC, Other additional outcome/goals: see below - Intervention & Plan Exercise Program Goals: Instruct on personal THR & RPE, Instruct on MET level & personal MET goal, Show patient to take own pulse /validate performance until accurate, Instruct on home exercise, Other additional plan/int - 30-day Reassessments 30 day Reassessments:: Met - Physical Activity Home Exercise Physical Activity - Home Exercise: Safe Exercise, Warm-up, Self-monitoring, Cool-Down, Home Exercise > 30 min Daily, Sitting Time <3 hours/daily - Outcomes & Goals Outcomes/Goals: Demonstrates correct Warm-up/exercise Cool-Down (S3) if = 2.5 METs, Verbalizes symptoms of exercise intolerance by Session 3 (S3), Demonstrate safe equipment use (S3) & follows exercise prescrition (6), Other: See below - Intervention & Plan Plan/Intervention: Instruct warm-up & cool-down if exercising at > 2 METs, Instruct on symptoms of exercise intolerance & actions to take, Instruct & monitor on saf, Assess intial functional capacity & safety risk, Other See below - 30-day Reassessments 30 day Reassessments:: Met Nutrition - Initial Assessment Nutrition - 30-Day Assessment Nutrition - 60-Day Assessment Nutrition - 90-Day Assessment - Program Goals Nutrition Program Goals: LDL <100 optimal. 100 - 129 Near optimal. 130 - 159 Borderline High. 160 - 189 High. Total Cholesterol <200 desirable. 200 - 239 Borderline High. >/= 240 High. HDL < 40 Low >/=60 High. Triglycerides <150 desirable. <199 optimal. VlDL 5 - 40. HgbA1C <7%. BMI <25 Patient has diagnosis of Hyperlipidemia (ICD E78)?: Yes - Visit Date of Assessment:: 09/02/22 Session #:: 34 - Cholesterol/Lipids (Other Core Measures) Determine presence & major risk factors that modify LDL goal: Hypertension or hypertensive medication, Low HDL cholesterol <40 mg/dL*, Family history of premature CHD in Male < 55 years: female <65 yearsFa, Age men > 45 years; women >/= 55 years Outcomes/Goals: Pt IDs own risk factors & lifestyle modifications by Session 10, Verbalizes symptoms of angina & response by session 3., Pt independently manages, Other Additional Outcomes/Goals: Intervention/Plan: Advocate for lipid panel cholesterol medication if applicable, Instruct on personal lipid levels & lipid goals/NCEP guidelines, Instruct on cholesterol, Other additional plan/int 30-day Reassessments:: Met - Diabetes (Other Core Measures) Diabetes Type: Not Applicable - Weight Mgt (Other Care) Height: 6 ft Weight:: 87.317 kg BMI: 26.1 Diagnosis Overweight/Obesity BMI> 30% ICD-10 E66: No Diagnosis High BMI/Morbid Obesity BMI> 35% ICD-10 Z68: No Outcomes/Goals: Pt sets, maintains & shows weight loss goal & trend during rehab, Other additional outcomes/goals Intervention/Plan: Instruct on ideal BMI & set weight loss goal w/patient, Assist pt to ID & incorporate diet changes for weight loss by S9, Refer to Structured Weight Loss program as appropriate, Encourage goal of using 250-300dcal per session for weight loss, Other additional plan/interventions 30 day Reassessments:: Met - Healthy Eating Habits Will attend diet classes:: Yes Outcomes/Goals:: Consume diet rich in vegs,fruits,whole grain/high fiber,fish,lean meat, Limit sat/trans fats,cholesterol & added salts & sugars, Other additional outcome/goals: Intervention/Plan:: Assess current eating habits, Other Additional plan/interventions 30-day Reassessments:: Met - Education Gave educational materials for:: Signs & symptoms of hypoglycemia, Signs & symptoms of hyperglycemia, Relate diabetes to coronary artery disease, Healthy eating Nutrition - Final Assessment Core - Initial Assessment Core - 30-Day Assessment Core - 60-Day Assessment Core - 90 Day Assessment - Visit Date of Eval: 09/02/22 Session #:: 34 - Medication Compliance Preventative Medication(s):: Aspirin, Clopidogrel/P2Y12 inhibit, Statin/lipid, Beta sergo H/O mental health issues: depression, anxiety, or addiction?: No Doesn?t believe in the benefits of treatment?: No Believes medications are unnecessary or harmful?: No Has a concern about medication side effects?: No Expresses concern over the cost of medications?: No Outcomes/Goals: Verbalizes medications,desired effect & common side effects @ DC, Pt self-reports following medication regimen, Keeps card in wallet w/medications listed by DC, Other additional outcome/goals: Interventions/plans: Instruct on medication effects & side effects, Review medication list w/patient every two weeks, Instruct importance of taking meds as ordered & assist problem solving, Other additional 30-day Reassessments:: Met - Tobacco Use Tobacco Use: Non-smoker - Hypertension Hypertension Diagnosis:: Hypertension ICD-10 I10 Resting Blood Pressure:: 126/68 [place] [employer] Hypertension Guidelines: [place] [employer] Hypertension Guidelines. Normal BP Less than 120/80. Elevated BP 120/80. Hypertension Stage 1: BP 130-139/80-89. Hypertesnion Stage 2: BP 140 or higher/90 or higher. Hypertension Crisis: BP higher than 180/120 Peak Exercise Blood Pressure:: 126/68 Outcomes/Goals: Able to verbalize/achieve optimal blood pressure <130/80, Incorporates diet changes & exercise for blood pressure control by DC, Other additional outcomes/goals Interventions/plan: Instruct on optimal blood pressure, hypertension & medications, Instruct on effects of sodium, alcohol, stress, exercise &hypertension, Other additional plan/interventions 30 day Reassessments:: Met - Tobacco Cessation Referral Smoking Cessation Referral:: No Individual Education/Counseling:: No Education Schedule Given:: Yes Core - Final Assessment Psychosocial - Initial Assess Psychosocial - 30-Day Assess Psychosocial - 60-Day Assess Psychosocial - 90-Day Assess - VIsit History of previous Mental disease:: Yes History of Emotional Disorders: Depression Self-reported stressors: Recent Illness - Outcomes/Goals: See list Psychosocial Outcomes/Goals:: ID's personal stressors & 2 strategies to manage stress by discharge, Other Additional outcome/goals: - Intervention/Plan: See List Interventions/Plan:: Assess stressors,coping strategies & signs of derpression on admission, Instruct/assist pt to develop coping & personal stress Mgt strategies, Refer to Behavioral Health if appropriate, Refer to Physician if appropriate, Instruct patient to recognize signs & symptoms of depression, Instruct patient to recog, Other additional plan/intervention - 30-day Reassessments: 30 day Reassessments:: Met Psychosocial - Final Assessmen Patient Health Questionnaire 90-Day Re-eval Assessment 1. Little interest or pleasure in doing things: Not at all 2. Feeling down, depressed, or hopeless: Not at all 3. Trouble falling or staying asleep, or sleeping too much: Nearly every day 4. Feeling tired or having little energy: Not at all 5. Poor appetite or overeating: Not at all 6. Feeling bad about yourself -- or that you are a failure or have let yourself or your family down: Not at all 7. Trouble concentrating on things, such as reading the newspaper or watching television: Not at all 8. Moving or speaking so slowly that other people could have noticed. Or the opposite - being so fidgety or restless that you have been moving around a lot more than usual: Not at all 9. Thoughts that you would be better off , or of hurting yourself in some way: Not at all How difficult have these problems made it for you to do your work, take care of things at home, or get along with other people?: Not difficult at all Total Score: 3 Self-Efficacy 90-Day Re-eval Assessment We would like to know how confident you are in doing certain activities. Please select your confidence level for:: Select your confidence level for the following using the scale 1-10 where 1 is not at all confident and 10 is totally confident. Your score is the average of all 6 responses. Fatigue: How confident are you that you can keep the fatigue caused by your disease from interfering with the things you want to do? Select Number: 8 Physical Discomfort or Pain: How confident are you that you can keep the physical discomfort or pain of your disease from interfering with the things you want to do? Select Number: 8 Emotional Distress: How confident are you that you can keep the emotional distress caused by your disease from interfering with the things you want to do? Select Number: 8 Other Symptoms or Health Problems: How confident are you that you can keep other symptoms or health problems from interfering with the things you want to do? Select Number: 8 Different Tasks and Activities: How confident are you that you can do the different tasks and activities needed to manage your health condition so as to reduce your need to see a doctor? Select Number: 8 Medication: How confident are you that you can do things other than just taking medication to reduce how much your illness affects your everyday life? Select Number: 10 Total Score:: 8 Nutrition Survey
[2022-09-02 09:09] VITALS: BP 126/68; BMI 26.1
== END 2022-10-02 23:59 ==
LOC: CR 09:30
PROVIDERS: PCP Family Medicine
DX: I25.10 Atherosclerotic heart disease of native coronary artery without angina pectoris (principal); I25.9 Chronic ischemic heart disease, unspecified; I10 Essential (primary) hypertension
CPT/HCPCS: 93798